=== PATIENT | female | born 2005 | race Caucasian/White ===

== ENCOUNTER 2025-05-17 06:01 | Emergency (ER) | payer OTHER ==
[~2025-05-17] VITALS: Ht 165.1 cm; Wt 64.0 kg
[2025-05-17 06:30] VITALS: O2SAT 98
[2025-05-17 07:11] LABS: CLARITY URINE CLOUDY (CLEAR); COLOR URINE YELLOW (YELLOW); GLUCOSE URINE NEGATIVE (NEGATIVE); KETONES URINE NEGATIVE (NEGATIVE); LEUKOCYTE ESTERASE URINE 2+ (NEGATIVE); NITRITE URINE NEGATIVE (NEGATIVE); OCCULT BLOOD URINE TRACE (NEGATIVE); PH URINE 6.0 (4.5-8.0); PROTEIN URINE NEGATIVE (NEGATIVE); SPECIFIC GRAVITY URINE 1.015 (1.005-1.030); UROBILINOGEN URINE 0.2 E.U./dL (0.2-1.0)
[2025-05-17 08:01] LABS: BACTERIA URINE 3+; RBC URINE 25-50 /hpf (0-2); SQUAMOUS EPITHELIAL CELL URINE 2+ /lpf (RARE/1+); WBC URINE 25-50 /hpf (0-2)
[2025-05-17] MEDS ORDERED: LEVO-65 PO (08:21)
[2025-05-17] MEDS: ACETAMINOPHEN 325MG TABLET PO ONE (08:29)
[2025-05-17 09:28] VITALS: BP 120/74; PULSE 91; RESP 15; TEMP 36.6; O2SAT 98
== END 2025-05-17 09:32 | disposition home or self-care (01) ==
LOC: ER 06:01
DX: N39.0 Urinary tract infection, site not specified (principal)
CPT/HCPCS: 81003; 81025; 87077; 87186; 99283